=== PATIENT | female | born 1995 | race Caucasian/White ===

== ENCOUNTER → 2019-03-16 | Day surgery (SDC) | payer OTHER, SELFPAY | END | disposition home or self-care (01) | PROVIDERS: PCP Internal Medicine; Visit Provider Otolaryngology | DX: J34.2 Deviated nasal septum (principal); J34.3 Hypertrophy of nasal turbinates; J01.00 Acute maxillary sinusitis, unspecified; J32.0 Chronic maxillary sinusitis | CPT/HCPCS: 31255; 31267; 31256; 30140; 31240; 30520; 36415; 84702; 88304; A9270; J0131; J0330; J0690; J1100; J2250; J2405; J2704; J3010; J7040 ==

== ENCOUNTER 2021-11-24 17:45 | Emergency (ER) | payer OTHER, SELFPAY ==
[2021-11-24 17:47] VITALS: BP 114/75; PULSE 78; RESP 18; TEMP 36.1; O2SAT 99
[2021-11-24 18:20] LABS: Basophils Percent Auto 0.3 % (0.2-1.2); Eosinophils Absolute Auto 0.3 K/mm3 (0-0.3); Eosinophils Percent Auto 4.3 % (0-4.4); Hematocrit 38.6 % (37.0-47.0); Hemoglobin 12.7 g/dL (12.0-15.0); Immature Granulocyte Absolute 0.01 K/mm3 (0.00-0.031); Immature Granulocyte Percent A 0.2 % (0-0.5); Lymphocytes Absolute Auto 2.45 K/mm3 (0.9-3.2); Lymphocytes Percent Auto 40.2 % (18.3-44.2); Mean Corpuscular HGB Conc 32.9 g/dl (32-36); Mean Corpuscular Hemoglobin 28.7 pg (26-34); Mean Corpuscular Volume 87.1 fl (80-100); Mean Platelet Volume 8.8 fl (7.4-10.4); Monocytes Absolute Auto 0.5 K/mm3 (0.1-0.6); Monocytes Percent Auto 7.4 % (2.6-8.5); Neutrophils Absolute Auto 2.9 K/mm3 (1.3-6.7); Neutrophils Percent Auto 47.6 % (45.5-73.1); Platelet Count Result 286 k/mm3 (150-375); Red Blood Count 4.43 M/mm3 (4.2-5.4); Red Cell Distribution Width 13.2 % (11.5-14.5); White Blood Count 6.1 K/mm3 (4.5-10.0)
--- NOTE | 2021-11-24 18:24 | ED.GENADULT ---
HPI - General Adult General Chief complaint: Unspecified Stated complaint: belching nonstop Time Seen by Provider: 11/24/21 18:04 Source: patient Mode of arrival: ambulatory Limitations: no limitations History of Present Illness HPI narrative: This is a 26 year old female that presents to the ER for belching and reflux noted over the last couple of days. Reports history of H. Pylori and that she had similar symptoms at that time. She saw her primary who ordered a H. Pylori breath test that was negative. She was started on Omeprazole with improvement in reflux. But has continued to have belching. Reports some vomiting of acidic contents. Denies fever, or abdominal pain. Related Data Home Medications Medication Instructions Recorded Confirmed fexofenadine 60 mg tablet 60 mg PO DAILY tablet 07/03/21 11/23/21 norethindrone 0.4 mg-ethinyl 1 tablet PO DAILY 07/03/21 11/23/21 estradiol 35 mcg tablet Allergies Allergy/AdvReac Type Severity Reaction Status Date / Time oxycodone Allergy Unknown VOMITING Verified 11/23/21 14:24 acetaminophen [From Percocet] Allergy Unknown Verified 11/24/21 18:03 Review of Systems Review of Systems: CONSTITUTIONAL: Denies fever CARDIOVASCULAR: Reports chest pain GASTROINTESTINAL: Reports nausea and vomiting. Denies abdominal pain All systems reviewed & are unremarkable except as noted in HPI and below PMFSH Past Medical History Medical History (Updated 11/24/21 @ 20:15 by Merari Cantu PA-C) Allergies GERD (gastroesophageal reflux disease) History of Helicobacter pylori infection (~2015) Irritable bowel syndrome with diarrhea Surgical History Surgical History History of sinus surgery (~2019) [place] teeth removed (~2017) Family History Family History Father Alcohol abuse Grandparent Alcohol abuse Hypertension Heart disease Cerebrovascular accident Basal cell carcinoma (BCC) Renal insufficiency Thyroid condition Social History Social History (Updated 11/23/21 @ 14:26 by Isabela Payton MA) Social History: Lives with Mom and Grandma Smoking status: Never smoker Alcohol intake: current Alcohol use details: rarely Substance use: never Substance use type: does not use Gender identity (if verbalized by the patient): Female Sexual Orientation (if Verbalized by the Patient): Straight or Heterosexual Agree to blood products: Yes Exam Narrative: GENERAL: Well-appearing, well-nourished, and in no acute distress. HEAD: Normocephalic, atraumatic. EYES: EOMI. CHEST: Clear to auscultation. No respiratory distress. No wheezes rales or rhonchi HEART: Regular rate and rhythm. No murmur heard. Normal peripheral pulses. ABDOMEN: Soft, nontender, nondistended, normal active bowel sounds. EXTREMITIES: Normal range of motion. No edema. SKIN: Warm, dry, no rash. NEURO: No focal deficits. Alert and oriented x3. PSYCH: Normal mood and affect Course Vital Signs Vital signs: Vital Signs Temperature 97 F L 11/24/21 17:47 Pulse Rate 78 11/24/21 17:47 Respiratory Rate 18 11/24/21 17:47 Blood Pressure 114/75 11/24/21 17:47 Pulse Oximetry 99 11/24/21 17:47 Temperature 97 F L 11/24/21 17:47 Pulse Rate 78 11/24/21 17:47 Respiratory Rate 18 11/24/21 17:47 Blood Pressure 114/75 11/24/21 17:47 Pulse Oximetry 99 11/24/21 17:47 Medical Decision Making MDM Narrative Medical decision making narrative: Patient presents to the emergency department for reflux and belching. She denies any abdominal pain. Abdominal exam is benign. She is afebrile and nontoxic-appearing. CBC and metabolic panel without concerning findings. Lipase is normal. Bedside test is negative. UA without evidence of infection. Patient has been evaluated by her primary had a negative H. pylori breath test. Was started on omeprazole. Remi
[2021-11-24 18:29] LABS: Alanine Aminotransferase 25 U/L (4-35); Albumin Level 4.8 g/dL (3.5-5.1); Alkaline Phosphatase 86 U/L (38-126); Anion Gap 6 mmol/L (8-16); Aspartate Amino Transferase 29 U/L (14-36); Bilirubin,Total 0.3 mg/dL (0.2-1.3); Blood Urea Nitrogen 11 mg/dL (7-17); Calcium 9.8 mg/dL (8.4-10.2); Carbon Dioxide 26 mmol/L (22-30); Chloride 103 mmol/L (98-107); Estimated CRCL calculation 107 ml/min; Estimated Glomerular Filt Rate > 60; Glucose 110 mg/dL (65-110); Lipase 48 U/L (23-300); Potassium 4.3 mmol/L (3.4-5.0); Sodium 135 mmol/L (137-145)
--- NOTE | 2021-11-24 18:30 | ECG_ITS ---
Measurements Intervals [place] Rate: 57 P: 28 MT: 163 QRS: 57 QRSD: 87 T: 45 QT: 394 QTc: 384 Interpretive Statements SINUS BRADYCARDIA BASELINE ARTIFACT- I, II, III, AVR, AVL BORDERLINE ECG Electronically Signed On 11-24-2021 20:47:01 [employer] by Justo Marcelo D.O.
[2021-11-24] MEDS: FAMOTIDINE 20 MG/2 ML VIAL IV PUSH (18:59)
[2021-11-24] MEDS: DICYCLOMINE HCL INJ 20 MG/2 ML VIAL IM (18:59)
[2021-11-24] MEDS: ONDANSETRON INJ 4 MG/2 ML VIAL IV PUSH (19:00)
[2021-11-24 19:24] LABS: Add Urine Microscopic? YES; Appearance Urine Clear (Clear); Bilirubin Urine Negative (Negative); Blood Urine 2+ (Negative); Color Urine Yellow (Yellow); Glucose Urine UA Negative (Negative); Ketones Urine Negative (Negative); Leukocyte Esterase Ur Negative LEU/UL (Negative); Mucus Urine Rare /lpf; Nitrate Urine Negative (Negative); Protein Urine Negative (Negative); RBC Urine 21-50 /hpf (0-2); Specific Grav Ur 1.016 (1.001-1.035); Squamous Epithelial Cell Urine Rare /hpf (Few); Urobilinogen Urine Negative mg/dL (<2.0); WBC Urine 0-3 /hpf
[2021-11-24 20:52] VITALS: BP 96/68; PULSE 68; RESP 18; O2SAT 100
== END 2021-11-24 20:53 | disposition home or self-care (01) ==
PROVIDERS: Physician Assistant; Emergency Provider Emergency Medicine; PCP Nurse Practitioner Family
DX: R14.2 Eructation (principal); K21.9 Gastro-esophageal reflux disease without esophagitis; K58.0 Irritable bowel syndrome with diarrhea; R00.1 Bradycardia, unspecified
CPT/HCPCS: 36415; 80053; 81001; 81025; 83690; 85025; 93005; 96372; 96374; 96375; 99284; J0500; J2405

== ENCOUNTER 2023-03-20 09:12 | Outpatient (CLI) | payer OTHER, SELFPAY ==
--- NOTE | 2023-04-08 15:38 | WPDSLEEPSTUD ---
Sleep Study Date of Study: 03/20/23 Ordering Provider: DAYA Sy Interpreting Physician: Sarita Roca DO Sleep Study Type: Polysomnogram Height: 1.57 m Weight: 86.183 kg Body Mass Index: 34.7 Neck Circumference (inches): 13 [place]: 17 Reason for Sleep Study Daytime hypersomnia Sleep History The patient is a 27-year-old female with seasonal allergies, GERD and irritable bowel syndrome that had a sleep study ordered by the pulmonary group for evaluation of hypersomnia. The patient rarely awakens from sleep short of breath. She denies awakening at night with heartburn, belching or cough. She rarely snores and is never loud enough that others complain. She rarely has trouble sleeping when she has a cold. She rarely wakes up gasping for air throughout the night. She denies having breathing problems at night observed by herself or others. She denies sweating excessively at night. She occasionally has heart palpitations or irregular heartbeats during the night. She frequently falls asleep during the day and frequently falls asleep while driving. She denies sleep paralysis and cataplexy. She constantly has trouble at school or work due to sleepiness. She frequently experiences vivid dreamlike scenes upon awakening or falling asleep. She denies feeling afraid of going to sleep. She rarely has nightmares. She frequently remembers her dreams. She frequently has thoughts racing through her mind. She occasionally feels sad or depressed. She constantly has anxiety. She frequently has muscular tension. She rarely notices parts of her body jerk. She denies kicking during the night. She denies having crawling and aching feelings in her legs and denies having leg pain during the night. She occasionally grinds her teeth during sleep but rarely awakens with morning jaw pain. She is rarely bothered by pain during the day and rarely awakened by pain during the night. She occasionally wakes up feeling stiff in the morning. She denies waking up with sore achy muscles. She occasionally wakes up with pain in the neck, spine or other joints. The patient goes to bed at 10:00 p.m. on weekdays. She does not have a set bedtime on the weekends. It takes her 5 minutes to fall asleep. She does not typically wake up throughout the night but if she does it is to use the restroom. She wakes up at 5:30 a.m. on weekdays. She does not have a set wake-up time on the weekends. She typically gets 7 hours of sleep per night. She will stay in bed for 10-30 minutes after waking up in the morning. She currently lives with her mother and grandmother. She denies consuming any caffeinated beverages within 2 hours of bedtime. She will engage in physical exercise before bedtime. She will watch television before falling asleep. She will take naps in the afternoon or the evening if she can but they are not significantly refreshing. She consumes 1-2 caffeinated beverages per day. She denies tobacco, alcohol and recreational drug use. [facility] Past Medical History Medical History Allergies GERD (gastroesophageal reflux disease) History of Helicobacter pylori infection (~2016) Irritable bowel syndrome with diarrhea Surgical History Surgical History History of sinus surgery (~2019) [place] teeth removed (~2017) Family History Family History Father Alcohol abuse Grandparent Alcohol abuse Hypertension Heart disease Cerebrovascular accident Basal cell carcinoma (BCC) Renal insufficiency Thyroid condition Mother Narcolepsy Pre-diabetes Unknown Narcolepsy Diabetes mellitus Sleep apnea Social History Social History Social History: Lives with Mom and Grandma Smoking status: Never smoker Alcoho
[2023-04-08 15:40] VITALS: BMI 34.7
--- NOTE | 2023-04-08 16:50 | WPDSLEEPSTUD ---
Sleep Study Date of Study: 03/20/23 Ordering Provider: DAYA Sy Interpreting Physician: Sarita Roca DO Sleep Study Type: Multiple Sleep Latency Test Height: 1.57 m Weight: 86.183 kg Body Mass Index: 34.7 Neck Circumference (inches): 13 [place]: 17 Reason for Sleep Study Excessive daytime sleepiness Sleep History Please see sleep history on PSG report from the previous night. [facility] Past Medical History Medical History Allergies GERD (gastroesophageal reflux disease) History of Helicobacter pylori infection (~2015) Irritable bowel syndrome with diarrhea Surgical History Surgical History History of sinus surgery (~2018) [place] teeth removed (~2017) Family History Family History Father Alcohol abuse Grandparent Alcohol abuse Hypertension Heart disease Cerebrovascular accident Basal cell carcinoma (BCC) Renal insufficiency Thyroid condition Mother Narcolepsy Pre-diabetes Unknown Narcolepsy Diabetes mellitus Sleep apnea Social History Social History Social History: Lives with Mom and Grandma Smoking status: Never smoker Alcohol intake: current Alcohol use details: rarely socially Substance use: never Substance use type: does not use Lack of Transportation: No Lack of Food: Never True Current Housing: I Have Housing Concerned About Future Housing: No Difficulty Paying Gas/Electric Bills: No Difficulty Paying for Meds: No Currently Unemployed: No Education: Master's Degree or Higher Difficulty w/ Childcare or Family Care: No Living arrangements: with family Occupation/Education: occupation 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, [employer]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 Gender identity (if verbalized by the patient): Female Sexual Orientation (if Verbalized by the Patient): Straight or Heterosexual Agree to blood products: Yes Medications Home Medications Medication Instructions Recorded Confirmed Type fexofenadine 60 mg tablet (Shahnaz 60 mg PO DAILY 07/03/21 02/22/23 History Allergy) norethindrone 0.4 mg-ethinyl 1 tablet PO DAILY 07/03/21 02/22/23 History estradiol 35 mcg tablet (Balziva (28)) omeprazole 20 mg capsule,delayed 20 mg PO BID #180 caps 09/11/22 02/22/23 Rx release loperamide 2 mg capsule 4 mg PO .every other day 02/22/23 02/22/23 History Sleep Procedure The recording montage for the MSLT includes central EEG (C3-A2, C4-A1) and occipital (O1-A2, O2-A1) derivations, left and right eye electrooculograms (EOGs), mental/submental electromyogram (EMG), and electrocardiogram (EKG). Nap 1 commenced at 08:04. Sleep onset started at 08:21. Sleep latency was 16.4 minutes. Nap 1 was terminated at 08:36. The patient did not achieve REM sleep during this nap. The patient said that sleep did not occur. Nap 2 commenced at 10:09. Sleep onset started at 10:18. Sleep latency was 8.9 minutes. Nap 2 was terminated at 10:33. The patient did not achieve REM sleep during this nap. The patient said that sleep did not occur. Nap 3 commenced at 11:59. Sleep onset started at 12:02. Sleep latency was 2.9 minutes. Nap 3 was terminated at 12:18. The patient did not achieve REM sleep during this nap. The patient said that sleep did not occur. Nap 4 commenced at 02:10. Sleep onset started at 14:18. Sleep latency was 8.4 minutes. Nap 4 was terminated at 14:33. The patient did not achieve REM sleep during this nap. The patient said that sleep did not occur. Nap 5 commenced at 04:10. Sleep onset started at 16:17. Sleep latency was 6.4 minutes. Nap 5 was terminated at 16:32. The patient did not achieve REM sleep during this nap. The patient said that sleep did not occur. The mean sleep latency was 8.6 mi
[2023-04-08 16:53] VITALS: BMI 34.7
== END 2023-03-21 17:43 | disposition home or self-care (01) ==
LOC: ANHCSM 09:12
PROVIDERS: PCP Nurse Practitioner Family; Visit Provider Physician Assistant
DX: G47.10 Hypersomnia, unspecified (principal)
CPT/HCPCS: 95805; 95810

== ENCOUNTER 2023-04-26 12:40 | Emergency (ER) | payer OTHER, SELFPAY ==
[2023-04-26 12:46] VITALS: BP 103/68; PULSE 72; RESP 18; TEMP 36.4; O2SAT 100
[2023-04-26] MEDS: DICYCLOMINE HCL INJ 20 MG/2 ML VIAL IM (13:52)
--- NOTE | 2023-04-26 14:01 | ED.GENADULT ---
HPI - General Adult General Chief complaint: Unspecified Stated complaint: ab pain, bloating Time Seen by Provider: 04/26/23 13:12 History of Present Illness HPI narrative: Patient is a 27-year-old female who presents to the ER with frequent belching and abdominal bloating/cramps. Has history of IBS. Symptoms started over the last day. She has been taking omeprazole as well as one-time dose of simethicone. After calling her GI doctor twice they recommend she come to the ER for evaluation since the simethicone did not work. Patient has history of H. pylori in the past. No fevers or chills or sweats. No known sick contacts. No diarrhea or constipation. Patient reports she received a Benadryl injection last year that improved her symptoms and she would like similar. Patient also has begun taking loperamide to help with her IBS symptoms. Related Data Home Medications Medication Instructions Recorded Confirmed fexofenadine 60 mg tablet (Shahnaz 60 mg PO DAILY 07/03/21 02/22/23 Allergy) norethindrone 0.4 mg-ethinyl 1 tablet PO DAILY 07/03/21 02/22/23 estradiol 35 mcg tablet (Rosalin[place] (28)) loperamide 2 mg capsule 4 mg PO .every other day 02/22/23 02/22/23 Allergies Allergy/AdvReac Type Severity Reaction Status Date / Time acetaminophen [From Percocet] AdvReac Mild Nausea and Verified 02/22/23 14:03 Vomiting oxycodone [From Percocet] AdvReac Mild Nausea and Verified 02/22/23 14:03 Vomiting Review of Systems Constitutional: Constitutional: Denies chills and Denies fever(s) Cardiovascular: Cardiovascular: Denies chest pain and Denies radiating jaw, neck or arm pain Respiratory: Respiratory: Denies cough and Denies dyspnea Gastrointestinal: Gastrointestinal: Denies abdominal pain, Reports belching, Denies constipation, Reports GI cramping, Denies excessive flatus, Denies diarrhea and Denies vomiting PMFSH Past Medical History Medical History Allergies GERD (gastroesophageal reflux disease) History of Helicobacter pylori infection (~2016) Irritable bowel syndrome with diarrhea Surgical History Surgical History History of sinus surgery (~2019) [place] teeth removed (~2017) Family History Family History Father Alcohol abuse Grandparent Alcohol abuse Hypertension Heart disease Cerebrovascular accident Basal cell carcinoma (BCC) Renal insufficiency Thyroid condition Mother Narcolepsy Pre-diabetes Unknown Narcolepsy Diabetes mellitus Sleep apnea Social History Social History Social History: Lives with Mom and Grandma Smoking status: Never smoker Alcohol intake: current Alcohol use details: rarely socially Substance use: never Substance use type: does not use Lack of Transportation: No Lack of Food: Never True Current Housing: I Have Housing Concerned About Future Housing: No Difficulty Paying Gas/Electric Bills: No Difficulty Paying for Meds: No Currently Unemployed: No Education: Master's Degree or Higher Difficulty w/ Childcare or Family Care: No Living arrangements: with family Occupation/Education: occupation 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 HEAD: Normocephalic, atraumatic. ENT: Mucous membranes moist. ABDOMEN: Soft, nontender, nondistended, normal active bowel sounds. Frequent belching. EXTREMITIES: Normal range of motion. No edema. SKIN: Warm, dry, no rash. NEURO: Alert and oriented x3. PSYCH: Normal mood a
== END 2023-04-26 14:28 | disposition home or self-care (01) ==
PROVIDERS: Emergency Provider Emergency Medicine; PCP Nurse Practitioner Family
DX: R14.2 Eructation (principal)
CPT/HCPCS: 96372; 99283; J0500

== ENCOUNTER 2023-07-15 19:07 | Emergency (ER) | payer OTHER, BC, SELFPAY ==
--- NOTE | ~2023-07-15 | CT_ITS ---
Noncontrast CT scan of the cervical spine Technique: Multiple contiguous axial [address] images of the cervical spine were obtained and rec onstructed in 2D sagittal and coronal planes on the acquisition scanner. Dose reduction technique was used on this scan by utilizing automated exposure control, adjustment of the mA and/or kV according to patient size. The dose-length product (DLP) was 527.01 mGy-cm. Clinical History: Pain Findings: No fractures or dislocations. Unremarkable visualized bony structures. The intervertebral disc spaces are preserved. No prevertebral soft tissue swelling. Impression: No fracture or subluxation of the cervical spine. Reviewed, dictated and finalized at location . Impression: No fracture or subluxation of the cervical spine.
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
[2023-07-15 19:32] VITALS: BP 99/53; PULSE 63; RESP 15; TEMP 36.4; O2SAT 100
[2023-07-16] MEDS: ONDANSETRON HCL ODT 4 MG TABLET PO (02:04)
[2023-07-16] MEDS: HYDROcodone/acetaminophen (*CRX) 5-325 MG TABLET 1 TAB PO (02:04)
[2023-07-16 03:04] VITALS: BP 98/67; PULSE 63; RESP 15; O2SAT 98
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
[2023-07-16 04:10] VITALS: BP 101/57; PULSE 66; RESP 15; O2SAT 100
[2023-07-16 05:16] VITALS: BP 94/62; PULSE 56; RESP 14; O2SAT 98
== END 2023-07-16 05:17 | disposition home or self-care (01) ==
PROVIDERS: Emergency Provider Emergency Medicine; PCP Nurse Practitioner Family
DX: S09.90XA Unspecified injury of head, initial encounter (principal); M54.6 Pain in thoracic spine; R91.1 Solitary pulmonary nodule; K21.9 Gastro-esophageal reflux disease without esophagitis; V89.2XXA Person injured in unspecified motor-vehicle accident, traffic, initial encounter
CPT/HCPCS: 70450; 72072; 72125; 81025; 99284; A9270

== ENCOUNTER → 2023-08-06 16:00 | Outpatient (CLI) | payer BC, SELFPAY ==
--- NOTE | ~2023-08-06 | XR_ITS ---
EXAMINATION: XR chest 2V 08/06/2023 16:09 INDICATION: Cough PROCEDURE: 2 view chest COMPARISON: 10/15/2018 FINDINGS: The lungs are clear. The cardiomediastinal silhouette is within normal limits. There are no pleural effusions. There is no pneumothorax suspected. There is calcified granuloma right midlun g. IMPRESSION: 1: NO ACUTE CARDIOPULMONARY DISEASE. Reviewed, dictated and finalized at location L.
== END ==
PROVIDERS: PCP Nurse Practitioner Family; Visit Provider Nurse Practitioner Family
DX: R05.9 Cough, unspecified (principal)
CPT/HCPCS: 71046

== ENCOUNTER 2023-09-30 13:31 | Outpatient (CLI) | payer BC, SELFPAY ==
[2023-09-30 19:59] LABS: Basophils Percent Auto 0.7 % (0.2-1.2); Eosinophils Absolute Auto 0.1 K/mm3 (0-0.3); Hematocrit 38.8 % (37.0-47.0); Hemoglobin 12.7 g/dL (12.0-15.0); Lymphocytes Absolute Auto 2.31 K/mm3 (0.9-3.2); Lymphocytes Percent Auto 51.2 % (18.3-44.2); Mean Corpuscular HGB Conc 32.7 g/dl (32-36); Mean Corpuscular Hemoglobin 28.7 pg (26-34); Mean Corpuscular Volume 87.6 fl (80-100); Mean Platelet Volume 9.8 fl (7.4-10.4); Monocytes Absolute Auto 0.4 K/mm3 (0.1-0.6); Monocytes Percent Auto 7.8 % (2.6-8.5); Neutrophils Absolute Auto 1.7 K/mm3 (1.3-6.7); Neutrophils Percent Auto 38.3 % (45.5-73.1); Platelet Count Result 264 k/mm3 (150-375); Red Blood Count 4.43 M/mm3 (4.2-5.4); Red Cell Distribution Width 12.9 % (11.5-14.5); White Blood Count 4.5 K/mm3 (4.5-10.0)
[2023-09-30 20:27] LABS: Alanine Aminotransferase 30 U/L (6-35); Albumin Level 4.5 g/dL (3.5-5.1); Alkaline Phosphatase 75 U/L (38-126); Anion Gap 8 mmol/L (8-16); Aspartate Amino Transferase 35 U/L (14-36); Bilirubin,Total 0.5 mg/dL (0.2-1.3); Blood Urea Nitrogen 12 mg/dL (7-17); Calcium 9.6 mg/dL (8.4-10.2); Carbon Dioxide 25 mmol/L (22-30); Chloride 104 mmol/L (98-107); Estimated Glomerular Filt Rate > 60; Glucose 82 mg/dL (65-110); Potassium 4.1 mmol/L (3.4-5.0); Sodium 137 mmol/L (137-145)
[2023-09-30 20:50] LABS: Cholesterol 187 mg/dL (0-200); HDL Direct 66 mg/dL; Triglycerides 47 mg/dL (<150)
[2023-09-30 21:05] LABS: LDL Cholesterol Direct 89 mg/dL
[2023-10-03 09:34] LABS: Thyroid Peroxidase Antibodies <1 IU/mL (<9)
[2023-10-03 13:45] LABS: Vitamin D 1,25 (OH)2 Total 33 pg/mL (18-72); Vitamin D2 1,25 (OH)2 <8 pg/mL; Vitamin D3 1,25 (OH)2 33 pg/mL
== END 2023-09-30 13:32 | disposition home or self-care (01) ==
LOC: ANHGOSHLAB 13:33
PROVIDERS: PCP Nurse Practitioner Family; Visit Provider Nurse Practitioner Family
DX: Z00.00 Encounter for general adult medical examination without abnormal findings (principal); E55.9 Vitamin D deficiency, unspecified; R53.83 Other fatigue
CPT/HCPCS: 36415; 80053; 80061; 82652; 84443; 85025; 86376

== ENCOUNTER 2025-02-06 17:53 | Emergency (ER) | payer OTHER, BC, SELFPAY ==
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
--- OUTSIDE RECORDS SUMMARY | 2025-02-06 17:56 | XMS_ITS | Clinical Summary ---
Author Organization [facility] Address [address] [place] [address] Phone Care Team Providers Care Flight Attendant/Inflight Supervisor Name Role Phone Demetrio Lipscomb DO Primary Care Provider Allergies No known active allergies Medications NORETH-ETHINYL ESTRADIOL/IRON (GENERESS FE ORAL) Take by mouth. Active Family History Medical History Relation Name Comments Colon Cancer Neg Hx Social History Tobacco Use Types Packs/Day Years Used Date Smoking Tobacco: Never Alcohol Use Standard Drinks/Week Comments No 0 (1 standard drink = 0.6 oz pur e alcohol) Comments Unknown Sex and Gender Information Value Date Recorded Sex Assigned at Not on file Legal Sex Female 9:18 PM SENIOR MOBILE SOLUTIONS ARCHITECT Gender Identity Not on file Sexual Orientation Not on file Last Filed Vital Signs Vital Sign Reading Time Taken Comments Blood Pressure 91/49 05/25/2013 11:32 AM CDT Pulse 72 05/25/2013 11:32 AM CDT Temperature 36.9 C (98.4 F) 05/25/2013 11:25 AM CDT Respiratory Rate 12 05/25/2013 11:32 AM CDT Oxygen Saturation 100% 05/25/2013 11:32 AM CDT Inhaled Oxygen Concentration - - Weight 66 kg (145 lb 9.6 oz) 05/25/2013 9:57 AM CDT Height 157.5 cm (5' 2 ) 05/25/2013 9:57 AM CDT Body Mass Index 26.63 05/25/2013 9:57 AM CDT Plan of Treatment Health Maintenance Due Date Last Done Comments DTAP/TDAP/TD VACCINES (1 - Tdap) 2012 HEPATITIS B VACCINES (1 of 3 - 19+ 3-dose series) 2012 HPV/Cotest (21-29) 11/18/2022 11/18/2017, 1 11/25/2015, 06/30/2015, Additional history exists CERVICAL CANCER SCREENING 2023 HPV/Cotest (30-65) 2023 11/18/2017, 1 11/25/2015, 06/30/2015, Additional history exists PAP SMEAR 2023 11/18/2017, 09/13, 09/24/2016, Additional history exists INFLUENZA VACCINE (#1) 2024 HPV VACCINES Aged Out No longer eligi ble based on patient's age to complete this topic Procedures Procedure Name Priority Date/Time Associated Diagnosis Comments CERV/VAG CYTO SCREEN PAP RLFX HPV Routine 11/18/2017 3:00 PM SENIOR MOBILE SOLUTIONS ARCHITECT Pap smear, low-risk from Last 3 Months or Most Recently Relevant to Health Maintenance Results * CERV/VAG CYTOPATH, THIN PREP IMAGR RFLX HPV (11/18/2017 3:00 PM SENIOR MOBILE SOLUTIONS ARCHITECT) CLINICAL INFORMATION SEE COMMENT 11/22/2017 8:31 AM SENIOR MOBILE SOLUTIONS ARCHITECT [facility] Comment:Information not prov ided LAST MENSTRUAL PERIOD SEE COMMENT 11/22/2017 8:31 AM SENIOR MOBILE SOLUTIONS ARCHITECT [facility] Comment:Information not prov ided PREV PAP: SEE COMMENT 11/22/2017 8:31 AM SENIOR MOBILE SOLUTIONS ARCHITECT [facility] Comment:Information not prov ided PREV BX: SEE COMMENT 11/22/2017 8:31 AM SENIOR MOBILE SOLUTIONS ARCHITECT [facility] Comment:Information not prov ided SOURCE Endocervix 11/22/2017 8:31 AM SENIOR MOBILE SOLUTIONS ARCHITECT [facility] ADEQUACY: SEE COMMENT 11/22/2017 8:31 AM SENIOR MOBILE SOLUTIONS ARCHITECT [facility] Comment: Satisfactory for evaluation. Endocervical/transformation zone component present. Age and/or menstrual status not provided PAP INTERP SEE COMMENT 11/22/2017 8:31 AM SENIOR MOBILE SOLUTIONS ARCHITECT [facility] Comment:Negative for intraep ithelial lesion or malignancy. CYTOLOGY INFECTION SEE COMMENT 11/22 8:31 AM SENIOR MOBILE SOLUTIONS ARCHITECT [facility] Comment: Fungal organisms morphologically consistent with Sola spp. COMMENT SEE COMMENT 11/22/2017 8:31 AM SENIOR MOBILE SOLUTIONS ARCHITECT [facility] Comment: This Pap test has been evaluated with computer assisted technology. TUBE TRAILER FILLER: SEE COMMENT 2017 8:31 AM SENIOR MOBILE SOLUTIONS ARCHITECT [facility] Comment: MMW, CT(ASCP) CT screening location: [place] [address] [address] [place] [address] Genital SWAB OF ENDOCERVIX / Unknown Collection / Unknown 11/18/2017 3:00 PM SENIOR MOBILE SOLUTIONS ARCHITECT 11/18/2017 8:33 PM SENIOR MOBILE SOLUTIONS ARCHITECT Narrative [facility] - 11/22/2017 8:31 AM SENIOR MOBILE SOLUTIONS ARCHITECT Performing Organization Information: Site ID: Name: [facility] Address: [facility] Administration [place] [address] Director: Tramaine Goodman MD Miguel Lentz MD PATHOLOGY/CYTOLOGY ORDERABLES Final Result [facility] from Last 3 Months or Most Recently Relevant to Health Maintenance Insurance [employer] CHOICE POS II Advance Directives For more information, please contact: [phone] * Full Code (Latest Code Status on File) Date Activated Date Inactivated Comments 05/25/2013 9:50 AM 05/25/2013 2:31 PM Care Teams Flight Attendant/Inflight Supervisor Relationship Specialty Start Date End Date Demetrio Lipscomb DO PCP - General 09/29/15
--- OUTSIDE RECORDS SUMMARY | 2025-02-06 17:56 | XMS_ITS | Clinical Summary ---
Author Organization [facility] Address [address] [place] [address] Care Team Providers Care Casting And Pasting Supervisor Name Role Phone Demetrio Lipscomb DO Primary Care Provider [phone] Source Comments [facility],non-owned Affiliates and Associated Physician Practices is amultiple site organization consisting of ambulatory clinics and hospital sitesin [place], [place], [place] and [place]. This disclosure is being madepursuant to the Care Everywhere program and may not contain all information available regarding this patient. Last updated 18.[facility] Allergies Active Allergy Reactions Criticality Noted Date Comments Oxycodone-Acetaminophen Nausea and/or Vomiting,Headache 03/15/2018 Medications * Be aware that medications may not be up to date on this document. Alwaysverify current medications with the patient. norethindrone-e thinyl estradiol (BALZIVA) 0.4-35 MG-MCG tablet Take 1 tablet by mouth once daily Active Loratadine (CLARITIN) 10 MG Active famotidine (PEPCID) 20 MG chew tablet Take 20 mg by mouth at bedtime Active Social History Tobacco Use Types Packs/Day Years Used Date Smoking Tobacco: Never Smokeless Tobacco: Never Comments No Sex and Gender Information Value Date Recorded Sex Assigned at Not on file Legal Sex Female 7:12 AM CDT Gender Identity Not on file Sexual Orientation Not on file Last Filed Vital Signs Vital Sign Reading Time Taken Comments Blood Pressure 122/78 12/07/2019 9:59 AM LAB SYSTEMS ANALYST Pulse 90 12/07/2019 9:59 AM LAB SYSTEMS ANALYST Temperature 36.7 C (98.1 F) 12/07/2019 9:59 AM LAB SYSTEMS ANALYST Respiratory Rate 16 12/07/2019 9:59 AM LAB SYSTEMS ANALYST Oxygen Saturation 97% 12/07/2019 9:59 AM LAB SYSTEMS ANALYST Inhaled Oxygen Concentration - - Weight 74.8 kg (165 lb) 09/28/2018 12:14 PM LAB SYSTEMS ANALYST Height 157.5 cm (5' 2 ) 12/07/2019 9:59 AM LAB SYSTEMS ANALYST Body Mass Index 30.18 09/28/2018 12:14 PM LAB SYSTEMS ANALYST Plan of Treatment Health Maintenance Due Date Last Done Comments HIV SCREENING 2008 HEPATITIS C SCREENING 04/24/2011 DTAP/TDAP/TD VACCINES (1 - Tdap) 2012 HEPATITIS B VACCINE (1 of 3 - 19+ 3-dose series) 2012 COVID-19 VACCINE (1 - 2023-2 5 season) 2024 DEPRESSION SCREENING 10/14/2024 INFLUENZA VACCINE (Season Ended) 2025 ZOSTER VACCINE (1 of 2) 2043 HIB VACCINE Aged Out No longer eligi ble based on patient's age to complete this topic HPV VACCINE Aged Out No longer eligi ble based on patient's age to complete this topic MENINGOCOCCAL (Group B) VACC INE SHARED DECISION-MAKING Aged Out No longer eligibl e based on patient's age to complete this topic MENINGOCOCCAL GROUPS A/C/Y/W VACCINE Aged Out No longer eligible b ased on patient's age to complete this topic PNEUMOCOCCAL VACCINE Aged Out No long er eligible based on patient's age to complete this topic Insurance AETNA Care Teams Casting And Pasting Supervisor Relationship Specialty Start Date End Date Demetrio Lipscomb DO PCP - General Internal Medicine 12/07/19
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
[2025-02-06 18:55] VITALS: BP 116/80; PULSE 95; RESP 16; TEMP 36.6; O2SAT 100
--- OUTSIDE RECORDS SUMMARY | 2025-02-06 21:45 | XMS_ITS | Clinical Summary ---
Author Organization [facility] Address [address] [place] [address] Care Team Providers Care Manager Quality Name Role Phone Demetrio Lipscomb DO Primary Care Provider [phone] Source Comments [facility],non-owned Affiliates and Associated Physician Practices is amultiple site organization consisting of ambulatory clinics and hospital sitesin [place], [place], [place] and [place]. This disclosure is being madepursuant to the Care Everywhere program and may not contain all information available regarding this patient. Last updated 18.[facility] Allergies Active Allergy Reactions Criticality Noted Date [...] Comments Blood Pressure 122/78 12/07/2019 9:59 AM OFFICE TECHNOLOGIST Pulse 90 12/07/2019 9:59 AM OFFICE TECHNOLOGIST Temperature 36.7 C (98.1 F) 12/07/2019 9:59 AM OFFICE TECHNOLOGIST Respiratory Rate 16 12/07/2019 9:59 AM OFFICE TECHNOLOGIST Oxygen Saturation 97% 12/07/2019 9:59 AM OFFICE TECHNOLOGIST Inhaled Oxygen Concentration - - Weight 74.8 kg (165 lb) 09/28/2018 12:14 PM OFFICE TECHNOLOGIST Height 157.5 cm (5' 2 ) 12/07/2019 9:59 AM OFFICE TECHNOLOGIST Body Mass Index 30.18 09/28/2018 12:14 PM OFFICE TECHNOLOGIST Plan of Treatment Health Maintenance Due Date [...] complete this topic Insurance AETNA Care Teams Manager Quality Relationship Specialty Start Date End Date Demetrio Lipscomb DO PCP - General Internal Medicine 12/07/19
--- OUTSIDE RECORDS SUMMARY | 2025-02-06 21:45 | XMS_ITS | Clinical Summary ---
Author Organization [facility] Address [address] [place] [address] Phone Care Team Providers Care Accounts Payable Representative Name Role Phone Demetrio Lipscomb DO Primary [...] on file Legal Sex Female 9:18 PM BAR TENDER Gender Identity Not on file Sexual Orientation [...] PAP RLFX HPV Routine 11/18/2017 3:00 PM BAR TENDER Pap smear, low-risk from Last 3 Months or Most Recently Relevant to Health Maintenance Results * CERV/VAG CYTOPATH, THIN PREP IMAGR RFLX HPV (11/18/2017 3:00 PM BAR TENDER) CLINICAL INFORMATION SEE COMMENT 11/22/2017 8:31 AM BAR TENDER [facility] Comment:Information not prov ided LAST MENSTRUAL PERIOD SEE COMMENT 11/22/2017 8:31 AM BAR TENDER [facility] Comment:Information not prov ided PREV PAP: SEE COMMENT 11/22/2017 8:31 AM BAR TENDER [facility] Comment:Information not prov ided PREV BX: SEE COMMENT 11/22/2017 8:31 AM BAR TENDER [facility] Comment:Information not prov ided SOURCE Endocervix 11/22/2017 8:31 AM BAR TENDER [facility] ADEQUACY: SEE COMMENT 11/22/2017 8:31 AM BAR TENDER [facility] Comment: Satisfactory for evaluation. Endocervical/transformation zone component present. Age and/or menstrual status not provided PAP INTERP SEE COMMENT 11/22/2017 8:31 AM BAR TENDER [facility] Comment:Negative for intraep ithelial lesion or malignancy. CYTOLOGY INFECTION SEE COMMENT 11/22 8:31 AM BAR TENDER [facility] Comment: Fungal organisms morphologically consistent with Sola spp. COMMENT SEE COMMENT 11/22/2017 8:31 AM BAR TENDER [facility] Comment: This Pap test has been evaluated with computer assisted technology. MANAGER INTERNSHIP: SEE COMMENT 2017 8:31 AM BAR TENDER [facility] Comment: MMW, CT(ASCP) CT screening location: [place] [address] [address] [address] Genital SWAB OF ENDOCERVIX / Unknown Collection / Unknown 11/18/2017 3:00 PM BAR TENDER 11/18/2017 8:33 PM BAR TENDER Narrative [facility] - 11/22/2017 8:31 AM BAR TENDER Performing Organization Information: Site ID: Name: [facility] Address: [facility] Administration [place] [address] Director: Tramaine Goodman MD Miguel Lentz MD PATHOLOGY/CYTOLOGY ORDERABLES Final Result [facility] from Last 3 Months or Most Recently Relevant to Health Maintenance Insurance [employer] CHOICE POS II Advance Directives For more information, please contact: [phone] * Full Code (Latest Code Status on File) Date Activated Date Inactivated Comments 05/25/2013 9:50 AM 05/25/2013 2:31 PM Care Teams Accounts Payable Representative Relationship Specialty Start Date End Date Demetrio Lipscomb DO PCP - General 09/29/15
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
[2025-02-06 23:05] VITALS: BP 121/84; PULSE 79; RESP 14; TEMP 36.5; O2SAT 100
[2025-02-06 23:30] LABS: BEDSIDEPREGUCG Negative (Negative)
[2025-02-07 01:31] VITALS: BP 125/89; PULSE 76; RESP 18; O2SAT 100
[2025-02-07] MEDS: KETOROLAC (*BKC) 60 MG/2 ML VIAL IM (01:48)
[2025-02-07 02:24] VITALS: BP 123/76; PULSE 68; RESP 13; O2SAT 99
== END 2025-02-07 02:25 | disposition home or self-care (01) ==
PROVIDERS: Emergency Provider Registered Nurse; PCP Nurse Practitioner Family
DX: S16.1XXA Strain of muscle, fascia and tendon at neck level, initial encounter (principal); S06.0X0A Concussion without loss of consciousness, initial encounter; K58.0 Irritable bowel syndrome with diarrhea; K21.9 Gastro-esophageal reflux disease without esophagitis; V49.40XA Driver injured in collision with unspecified motor vehicles in traffic accident, initial encounter
CPT/HCPCS: 70450; 72125; 81025; 96372; 99284; J1885

== ENCOUNTER 2025-04-06 11:42 | Outpatient (CLI) | payer BC, SELFPAY ==
--- NOTE | ~2025-04-06 | XR_ITS ---
EXAM/ PROCEDURE: XR lumbar spine 2-3V - 04/06/2025 11:44 CDT HISTORY: 29 years old Female with M54.50 - Low back pain, unspecified COMPARISON: None available TECHNIQUE: Three view(s) FINDINGS/ IMPRESSION: There are no fractures or dislocations.Intervertebral disc spaces are within normal limits. Reviewed, dictated and finalized at location A.
== END 2025-04-06 11:43 | disposition home or self-care (01) ==
LOC: GOSHIMG 11:43
PROVIDERS: PCP Nurse Practitioner Family; Visit Provider Nurse Practitioner Family
DX: M54.50 Low back pain, unspecified (principal)
CPT/HCPCS: 72100

== ENCOUNTER 2025-04-27 12:55 | Outpatient (CLI) | payer BC, SELFPAY ==
--- NOTE | ~2025-04-27 | MR_ITS ---
MRI of the lumbar spine Clinical History: Radiculopathy Technique: Axial T2-weighted images, and sagittal T1-weighted, T2-weighted, and T2 fat-sat images wer e acquired. Findings: There is no fracture or subluxation of the lumbar spine. Vertebral bodies maintain normal h eight and alignment. No bone marrow signal abnormality seen. At L1-L2, L2-L3, L3-L4, L4-L5, there is no significant disc bulge or herniation. There are moderate f acet joint degenerative changes at these levels. No spinal canal stenosis or neural foraminal narrowi ng at these levels. At L5-S1, there is a large disc extrusion extending from the right paracentral region superiorly behi nd the L5 vertebral body. There are probable severe impingement of the exiting right-sided nerve root at the L5-S1 level. Possible focal impingement of the descending right-sided S1-S2 level nerve root as well. No karson spinal canal stenosis. Paravertebral soft tissues are unremarkable. Impression: Large right paracentral disc extrusion at L5-S1 extending superiorly, probably impinging the right L5 -S1 and S1-S2 level nerve roots. Reviewed, dictated and finalized at location M. Impression: Large right paracentral disc extrusion at L5-S1 extending superiorly, probably impinging the right L5-S1 and S1-S2 level nerve roots.
== END 2025-04-27 12:56 | disposition home or self-care (01) ==
PROVIDERS: Visit Provider Nurse Practitioner Family
DX: M51.27 Other intervertebral disc displacement, lumbosacral region (principal)
CPT/HCPCS: 72148

== ENCOUNTER 2025-07-06 15:45 | Outpatient (RCR) | payer BC, SELFPAY ==
--- NOTE | 2025-04-08 11:30 | OPREHPOC ---
Outpatient Therapy Plan of Care This is a Multidisciplinary Plan of Care that may contain components documented by all disciplines (PT, OT, and ST.) PT Problem 1 PT Problem #1 Knowledge Deficit PT Goal 1 Goal / Goal Update 1. Patient to demonstrate independence with HEP for improved self-reliance of symptom management. Target Visit 8 PT Problem 2 PT Problem #2 Impaired Functional Mobility PT Goal 1 Goal / Goal Update 1. Patient will decrease their Modified Oswestry score by at least 10 points to indicate significant improvement in functional abilities and quality of life. 2. Patient to decrease subjective reports of pain to <3/10 for improved ADL tolerance. 3. Patient to report an improvement in radiating symptoms by 50% to increase ability to perform ADLs. Target Visit 8 PT Problem 3 PT Problem #3 Impaired Strength PT Goal 1 Goal / Goal Update 1. Patient will demonstrate improved strength of R dorsiflexion and quadricep strength displaying less signs of nerve root compression. 2. Patient will demonstrate improved strength of the bilateral hip abductors and extensors to 4+/5 on manual muscle testing in order to improve forces on lumbar spine. Target Visit 8
--- NOTE | 2025-04-08 11:30 | PTOPEVAL1 ---
Assessment and note entered by Gabriele Le PT Evaluation Information Assessment Status Evaluation Diagnosis Low back pain ICD-10 Condition Codes (PT) Pain in low back M54.50,Radiculopathy, lumbar region M54.16 Onset radicular symptoms within the past week Subjective Information Pt reports pain started in lower back and is a returning issue. Pt states her normal methods of management ice, anti inflammatory, chiropractor care. Pt is now reporting R sided leg pain stating there is shooting pains past her knee, and numbness tingling in foot. 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 Reported Pain Level Pain Score 0,8: Self Report Assessment PT Clinical Summary Patient presents to physical therapy with a primary issue of low back pain and RLE radicular symptoms for the past week. Pt had x rays performed that showed normal alignment and findings. Upon physical examination Pt present with signs consistent with L4-L5 nerve root compression such as absent patellar DTR, diminished sensation with reports of shooting pain and numbness, pt displays notable weakness of dorsiflexion and great toe extension weakness. Upon further testing patient demonstrates hip weakness, painful motions that were not relieved by changing positioning, decreased mobility, abnormal posture, gait deficit, and decreased flexibility that limit their ability to perform activities of daily living and functional movements. Patient will benefit from skilled physical therapy to address the above listed deficits and return to prior level of function. Home exercise program instructed and written handout provided, exercises tolerated well with no adverse effects to note post-session. Patient was educated on importance of adherence to home exercise program and to stop activity if potential red flags occur. Patient was also educated on anatomy, prognosis, home modalities, and plan of care and may be a candidate for further imaging if signs and symptoms of nerve root compression persist. Plan of Care Interventions Electrical Stimulation,Hot Pack/Cold Pack,Manual Therapy,Mechanical Traction,Neuro Re-education, Therapeutic Activities,Therapeutic Exercise,Other PT Services Indicated Yes Treatment Frequency and 2x week 8 visits Duration These treatments will address the objective and functional deficits as defined above. The patient will be advanced safely and appropriately in order for the patient to progress towards his/her prior level of function. Additional exercises will be introduced and as well as a comprehensive home exercise program upon discharge, if needed, ?to ensure carryover of functional gains achieved in the clinic. This treatment plan has been reviewed and agreement upon by the patient.
--- NOTE | 2025-04-27 14:07 | PCPTNOTE ---
Pt was called after 15 minutes into her appointment time. She states she did not know she had a appointment today and did not receive the reminder message.
--- NOTE | 2025-05-03 11:53 | PTOPPROG ---
Assessment and note entered by Gabriele Le PT Evaluation Information Assessment Status Evaluation Diagnosis Low back pain ICD-10 Condition Codes (PT) Pain in low back M54.50,Radiculopathy, lumbar region M54.16 Onset radicular symptoms within the past week Subjective Information Pt states she feels about 50% better overall she notes improvement in the pain going down her R leg and now has more localized pain in low back and R glute. Pt states she is able to more around the house but still feels limited with higher level activities out of the house such as dog walking. Pt notes she still has ankle instability that made her fall once and lose her balance several times. Assessment PT Clinical Summary Patient's condition has improved overall as evidenced by advancements in symptoms, mobility, strength, and overall functional use of the RLE. However, some limitations such as radicular pains and nerve root compression causing pain and myotomal weakness in L5, S1 patterns are still present. Skilled physical therapy is necessary to continue treating and monitoring radicular symptoms until pt is able to get in for surgical consult. Plan of Care Interventions Electrical Stimulation,Hot Pack/Cold Pack,Manual Therapy,Mechanical Traction,Neuro Re-education, Therapeutic Activities,Therapeutic Exercise,Other PT Services Indicated Yes Treatment Frequency and 1x week 4 visits Duration These treatments will address the objective and functional deficits as defined above. The patient will be advanced safely and appropriately in order for the patient to progress towards his/her prior level of function. Additional exercises will be introduced and as well as a comprehensive home exercise program upon discharge, if needed, ?to ensure carryover of functional gains achieved in the clinic. This treatment plan has been reviewed and agreement upon by the patient.
--- NOTE | 2025-06-03 08:54 | PTOPPROG ---
Assessment and note entered by Gabriele Le, PT Evaluation Information Assessment Status Progress Diagnosis Low back pain ICD-10 Condition Codes (PT) Pain in low back M54.50,Radiculopathy, lumbar region M54.16 Onset radicular symptoms within the past week Subjective Information Pt states she saw a neurosurgeon yesterday and they recommended she gets an epidural injection and continue physical therapy. Pt states she believes her radiating symptoms have improved 80% since starting physical therapy. She notes activities such as squatting down and bending forward increase the pain down her leg. Assessment PT Clinical Summary Patient's low back pain and RLE radicular symptoms have improved overall as evidence by decreased intensity of symptoms. However, some limitations are still present. Such as myotomal weakness causing ankle instability. Pt to receive epidural injection within the next few weeks and continue PT to address deficits to facilitate a return to their prior level of function. Plan of Care Interventions Electrical Stimulation,Hot Pack/Cold Pack,Manual Therapy,Mechanical Traction,Neuro Re-education, Therapeutic Activities,Therapeutic Exercise,Other PT Services Indicated Yes Treatment Frequency and 1x week 8 visits Duration These treatments will address the objective and functional deficits as defined above. The patient will be advanced safely and appropriately in order for the patient to progress towards his/her prior level of function. Additional exercises will be introduced and as well as a comprehensive home exercise program upon discharge, if needed, ?to ensure carryover of functional gains achieved in the clinic. This treatment plan has been reviewed and agreement upon by the patient.
== END 2025-07-07 23:59 | disposition home or self-care (01) ==
LOC: ANHGOSHPT 15:45
PROVIDERS: PCP Nurse Practitioner Family; Visit Provider Nurse Practitioner Family
DX: M54.50 Low back pain, unspecified (principal); M54.16 Radiculopathy, lumbar region
CPT/HCPCS: 97014; 97110; 97112; 97140; 97161; G0283

== ENCOUNTER 2025-09-08 15:30 | Outpatient (RCR) | payer BC, SELFPAY ==
--- NOTE | 2025-07-27 16:20 | PTOPPROG ---
Assessment and note entered by Gabriele Le, PT Evaluation Information Assessment Status Progress Diagnosis Low back pain ICD-10 Condition Codes (PT) Pain in low back M54.50,Radiculopathy, lumbar region M54.16 Onset radicular symptoms within the past week Subjective Information Pt reports she no longer has R leg pain but still has R ankle weakness and localized low back pain with physical activity that limiting her during work and home making duties. Pt states she is scheduled to see pain management again for another round of epidural injections. Assessment PT Clinical Summary Patient demonstrated measurable improvement in symptoms associated with lumbar radiculopathy, reporting a decrease in the frequency and intensity of distal lower extremity complaints since the last session. However, the patient still presents with moderate myotomal weakness (L5/S1) and persistent localized low back pain during activity. Continued skilled physical therapy is necessary to address these residual impairments through targeted strengthening and functional exercise. The plan of care remains focused on maximizing core stability and will continue monitoring radicular symptoms closely as therapeutic exercise is progressed. Plan of Care Interventions Electrical Stimulation,Hot Pack/Cold Pack,Manual Therapy,Mechanical Traction,Neuro Re-education, Therapeutic Activities,Therapeutic Exercise,Other PT Services Indicated Yes Treatment Frequency and 1x week 6 visits Duration These treatments will address the objective and functional deficits as defined above. The patient will be advanced safely and appropriately in order for the patient to progress towards his/her prior level of function. Additional exercises will be introduced and as well as a comprehensive home exercise program upon discharge, if needed, ?to ensure carryover of functional gains achieved in the clinic. This treatment plan has been reviewed and agreement upon by the patient.
--- NOTE | 2025-09-08 16:16 | PTOPDC ---
Assessment and note entered by Gabriele Le PT Evaluation Information Assessment Status Discharge Diagnosis Low back pain ICD-10 Condition Codes (PT) Pain in low back M54.50,Radiculopathy, lumbar region M54.16 Onset radicular symptoms within the past week Subjective Information Pt states she had a pain management follow up and was cleared with no follow up needed. She has no more pain in R leg and only moments of low back pain that can be managed with positioning. Pt has one remaining follow up with neurosurgeon but feels like she has regained full strength and function and has no further concerns. Reported Pain Level Pain Score 0,0: Self Report Assessment PT Clinical Summary Patient's low back pain with radicular symptoms has improved overall as evidenced by decreased symptoms and increased mobility, strength. Patient has met therapy goals and is pleased with progress made towards the remaining goals. Patient to discharge from physical therapy this date and continue with updated home exercise program as instructed. Patient to contact physical therapist or primary care provider if questions or concerns arise. Plan of Care PT Services Indicated No
== END 2025-09-10 08:53 | disposition home or self-care (01) ==
LOC: ANHGOSHPT 15:30
PROVIDERS: PCP Family Medicine; Visit Provider Nurse Practitioner Family
DX: M54.50 Low back pain, unspecified (principal)
CPT/HCPCS: 97014; 97110; 97112; 97140; 97530; G0283